=== PATIENT | female | born 1980 ===

== ENCOUNTER 2025-02-11 06:00 | Day surgery (SDC) | payer OTHER ==
[2025-02-05 08:13] VITALS: BP 130/87; O2SAT 100
[2025-02-05 08:29] LABS: BASO % 0.7 % (0.1-1.2); EOS # 0.22 (0.04-0.54); EOS % 3.0 % (0.7-7.0); LYMPH # 1.79 (1.18-3.74); LYMPH % 24.5 % (19.3-53.1); MEAN PLATELET VOLUME 9.30 fl (9.4-12.4); MONO # 0.49 (0.24-0.82); MONO % 6.7 % (4.7-12.5); NEUT # 4.75 (1.56-6.13); NEUT % 64.8 % (34.0-71.1); RED CELL DISTRIBUTION WIDTH 18.2 % (11.6-14.4); URINE APPEARANCE Clear; URINE BILIRRUBIN Negative (NEGATIVE); URINE BLOOD Negative; URINE COLOR Yellow; URINE GLUCOSE Negative (NEGATIVE); URINE KETONE Negative (NEGATIVE); URINE LEUKOCYTE Negative; URINE NITRATE Negative; URINE PROTEIN Negative (NEGATIVE); URINE UROBILINOGEN 0.2 E.U./dl
[2025-02-05 08:30] LABS: URINE BACTERIA 881.9 uL (0.0-1933); URINE EPITHELIAL CELLS 53.6 uL (0.0-38.8); URINE RBC 3.3 uL (0.0-20.8); URINE WBC 20.4 uL (0.0-23.2)
[2025-02-05 08:51] LABS: URINE CAST 0.00 uL (0.0-1.40)
[2025-02-05 08:53] LABS: INR 1.03
[2025-02-05 09:24] LABS: ALT/SGPT 24.0 U/L (12-78); AST/SGOT 13.0 U/L (15-37); BILIRUBIN TOTAL 0.58 mg/dL (0.3-1.2); BUN CREA RATIO 24.0 (7.0-25.0); CREATININE SERUM 0.76 mg/dL (0.55-1.02); GFR 82.3; GLOBULINA 3.3 G/DL (2.4-3.5); GLUCOSE FASTING 101.0 mg/dL (65-100); OSMOLALITY SERUM 283.0 MOSM/KG (275-295)
[~2025-02-11] VITALS: Ht 175.3 cm; Wt 99.8 kg
[~2025-02-11 06:00] MED LIST: COZAAR100 MG PO; DILTIAZEM ER180 M1 PO; MAXFE CAPLET1 EAC1 PO
[2025-02-11] MEDS ORDERED: DOXYCYCLINE HY100 M2 PO (08:51)
[2025-02-11] MEDS ORDERED: IBU600 MG PO (08:52)
[2025-02-11] MEDS ORDERED: CEFAZOLIN SODIUM 1,000 MG VIAL IV ONE (09:15)
[2025-02-11] MEDS ORDERED: POVIDONE-IODINE 118 ML BOTT TOP ONE (09:15)
== END 2025-02-11 13:35 | disposition home or self-care (01) ==
LOC: CIR.AMB 06:00
PROVIDERS: ATTEND Obstetrics & Gynecology
DX: N84.0 Polyp of corpus uteri (principal); D25.0 Submucous leiomyoma of uterus; N92.0 Excessive and frequent menstruation with regular cycle